=== PATIENT | female | born 1965 | race Caucasian/White ===

== ENCOUNTER 2021-02-05 14:12 | Emergency (ER) | payer BC ==
[2021-02-05] MEDS ORDERED: Sodium Chloride 0.9% 10 ML Syringe FLUSH PRN (14:36)
[2021-02-05] MEDS ORDERED: Morphine 2 MG/ML SYRINGE IVPUSH PRN (14:36)
[2021-02-05] MEDS: Aspirin 81 MG Tab.Chew PO ONE (14:55)
--- NOTE | 2021-02-05 15:34 | CR ---
DATE OF SERVICE: 02/05/2021 CLINICAL DATA: Chest pain AP chest: Comparison is made to a prior exam dated 27 June 2006. The patient has taken a poor inspiration. The heart size is normal. The lungs are clear. No pneumothorax. No pleural effusions. There is degenerative disc disease throughout the visualized spine. No evidence of acute intrathoracic disease. MTDD
--- NOTE | 2021-02-05 17:09 | EDM.PDOC ---
ED HPI GENERAL MEDICAL PROBLEM - General Chief Complaint: Chest Pain Stated Complaint: CHEST PAIN Time Seen by Provider: 02/05/21 14:13 - History of Present Illness INITIAL COMMENTS - FREE TEXT/NARRATIVE: Pt in anxious but in no acute distress Onset: Sudden Onset Date: 02/04/21 Duration: Intermittent Location: Reports: Chest (pain starts between the shoulder blades then progress forward th pt's chest.), Back Quality: Reports: Other ("crushing") Severity: Severe Associated Symptoms: Reports: Other (Nausea, flushing) - Related Data Allergies Allergy/AdvReac Type Severity Reaction Status Date / Time Penicillins Allergy Hives Verified 02/05/21 14:50 Sulfa (Sulfonamide Allergy Hives Verified 02/05/21 14:50 Antibiotics) Home Meds: Home Meds Cholecalciferol (Vitamin D3) [Vitamin D] 5,000 unit PO WEEKLY 02/05/21 [History] Fluticasone Propionate [Flonase] 1 pump NASLF ASDIRECTED 02/05/21 [History] Levothyroxine [Synthroid] 88 mcg PO ASDIRECTED 02/05/21 [History] Levothyroxine [Synthroid] 100 mcg PO ASDIRECTED 02/05/21 [History] Past Medical History Neurological History: Reports: Migraines Endocrine/Metabolic History: Reports: Hyperthyroidism Other Endocrine/Metabolic History: Hashimotos Social & Family History - Tobacco Use Tobacco Use Status *Q: Never Tobacco User ED ROS GENERAL - Review of Systems Review Of Systems: Comprehensive ROS is negative, except as noted in HPI. Psychiatric: Reports: Anxiety ED EXAM, GENERAL - Physical Exam Exam: See Below General Appearance: WD/WN, No Apparent Distress, Anxious Eye Exam: Bilateral Eye: EOMI, PERRL Ears: Normal External Exam, Hearing Grossly Normal Neck: Normal Inspection Respiratory/Chest: No Respiratory Distress, Lungs Clear, Normal Breath Sounds, No Accessory Muscle Use, Chest Non-Tender Cardiovascular: Normal Peripheral Pulses, Regular Rate, Rhythm, No Edema, No Gallop, No JVD, No Murmur, No Rub Peripheral Pulses: 2+: Radial (L), Radial (R), Posterior Tibial (L), Posterior Tibial (R) GI/Abdominal: Soft, Non-Tender, No Organomegaly, No Distention, No Mass (Female) Exam: Other (not done) Back Exam: Other (not done) Extremities: Normal Inspection, No Pedal Edema, Normal Capillary Refill Neurological: Alert, Oriented, Normal Cognition, No Motor/Sensory Deficits Psychiatric: Anxious Skin Exam: Warm, Intact, Other (flushed) #1 Interpretation Rhythm: NSR (without ectopy) Course - Vital Signs Last Recorded V/S: Last Vital Signs Temp 98.0 F 02/05/21 14:44 Pulse 88 02/05/21 15:28 Resp 16 02/05/21 15:28 BP 139/76 02/05/21 15:28 Pulse Ox 98 02/05/21 15:28 - Orders/Labs/Meds Orders: Active Orders 24 hr Category Date Time Status TSH ULTRASENSITIVE [CHEM] Stat Lab 02/05/21 15:52 Ordered Saline Lock Insert [OM.PC] Stat Oth 02/05/21 14:36 Ordered Labs: Laboratory Tests 02/05/21 02/05/21 02/05/21 Range/Units 15:03 15:03 15:06 WBC 7.4 (4.0-11.0) K/uL RBC 5.03 (3.80-5.80) M/uL Hgb 14.9 (11.5-16.5) g/dL Hct 43.5 (37.0-47.0) % MCV 87 (76-96) fL MCH 29.6 (27.0-32.0) pg MCHC 34.3 (31.0-35.0) g/dL RDW 12.2 (11.0-16.0) % Plt Count 263 (150-500) K/uL MPV 10.0 (6.0-10.0) fL Neut % (Auto) 44.9 L (45.0-70.0) % Lymph % (Auto) 40.3 H (20.0-40.0) % Trinity % (Auto) 9.9 (3.0-10.0) % Eos % (Auto) 4.2 (1.0-5.0) % Baso % (Auto) 0.7 H (0.0-0.5) % Neut # (Auto) 3.30 (2.00-7.50) K/uL Lymph # (Auto) 2.96 (1.50-4.00) K/uL Trinity # (Auto) 0.73 (0.20-0.80) K/uL Eos # (Auto) 0.31 (0.04-0.40) K/uL Baso # (Auto) 0.05 (0.02-0.10) K/uL Sodium 140 (136-145) mmol/L Potassium 4.0 (3.5-5.1) mmol/L Chloride 107 (98-107) mmol/L Carbon Dioxide 30.5 (21.0-32.0) mmol/L Anion Gap 6.5 (5.0-15.0) mmol/L BUN 10 (8-26) mg/dL Creatinine 0.88 (0.55-1.02) mg/dL Est Cr Clr Drug Dosing TNP Estimated GFR (MDRD) > 60 (>60) MLS/MIN BUN/Creatinine Ratio 11.4 (6-25) Glucose 98 (74-100) mg/dL Calcium 9.2 (8.5-10.1) mg/dL Total Bilirubin 0.5 (0.0-1.0) mg/dL AST 36 (15-37) U/L ALT 60 (12-78) U/L Alkaline Phosphatase 82 (46-116) U/L Troponin I < 0.017 (0.000-0.060) ng/mL Total Protein 7.0 (6.4-8.2) g/dL Albumin 4.1 (3.4-5.0) g/dL Globulin 2.9 (2.2-4.2) g/dL Albumin/Globulin Ratio 1.4 (0.8-2.0) TSH, Ultra Sensitive 0.623 (0.358-3.740) uIU/mL Meds: Medications Discontinued Medications Generic Name Dose Route Start Last Admin Trade Name Freq PRN Reason Stop Dose Admin Aspirin 324 mg 02/05/21 14:36 02/05/21 14:55 Aspirin 81 Mg Tab.Chew PO 02/05/21 14:37 324 mg ONETIME ONE Administration Morphine Sulfate 2 mg 02/05/21 14:36 Morphine 2 Mg/Ml Syringe IVPUSH 02/06/21 14:37 Q10M PRN Chest Pain Sodium Chloride 10 ml 02/05/21 14:36 Sodium Chloride 0.9% 10 Ml Syringe FLUSH ASDIRECTED PRN Keep Vein Open Departure - Departure Time of Disposition: 16:03 Disposition: Home, Self-Care 01 Condition: Good Clinical Impression: Atypical chest pain Instructions: Nonspecific Chest Pain, Adult, [id number] Referrals: PCP,None [Primary Care Provider] - Forms: ED Department Discharge Care Plan Goals: Follow up with primary care provider and get a stress test. Sepsis Event Note (ED) - Evaluation Sepsis Screening Result: No Definite Risk - Focused Exam Vital Signs: Vital Signs Temp Pulse Resp BP Pulse Ox 02/05/21 15:28 88 16 139/76 98 02/05/21 14:44 98.0 F 94 16 154/93 H 96 02/05/21 14:15 97.6 F 88 16 154/90 H 96 - My Orders Last 24 Hours: My Active Orders 02/05/21 14:36 Saline Lock Insert [OM.PC] Stat - Assessment/Plan Last 24 Hours: My Active Orders 02/05/21 14:36 Saline Lock Insert [OM.PC] Stat Assessment:: Pt assessed for CP, her chest x-ray was normal, troponin was negative, with an EKG without ST elevation or depression. TSH was WNL.
== END 2021-02-05 16:25 | disposition home or self-care (01) ==
LOC: LB.ED 14:12
DX: R07.89 Other chest pain (principal); E05.90 Thyrotoxicosis, unspecified without thyrotoxic crisis or storm; Z88.0 Allergy status to penicillin; Z88.2 Allergy status to sulfonamides; Z79.899 Other long term (current) drug therapy
CPT/HCPCS: 36415; 71045; 80053; 84443; 84484; 85025; 93005; 96374; 99285; A9270